=== PATIENT | male | born 1945 | race Caucasian/White ===

== ENCOUNTER 2017-09-11 19:30 | Outpatient (CLI) | payer MEDICARE | END 2017-09-11 19:31 | disposition home or self-care (01) | LOC: SLEEPLAB 19:30 | PROVIDERS: ATTEND Family Medicine | DX: G47.10 Hypersomnia, unspecified (principal); R53.83 Other fatigue; E66.9 Obesity, unspecified; I10 Essential (primary) hypertension; R06.83 Snoring | CPT/HCPCS: 95811 ==

== ENCOUNTER 2018-03-18 18:54 | Observation (INO) | payer MEDICARE ==
[~2018-03-18 18:54] MED LIST: ISOVUE-370 76%-LOCM 1 ML ONE
[2018-03-18] MEDS ORDERED: Ketorolac Tromethamine 30 MG/ML VIAL ONE (19:10)
[2018-03-18] MEDS ORDERED: Acetaminophen 500 MG TAB ONE (19:10)
[2018-03-18 19:40] LABS: #Basophils 0.1 thou/uL (0.0-0.2); #Eosinphils 0.3 thou/uL (0.0-0.7); #Lymphocytes 1.4 thou/uL (1.20-3.40); #Monocytes 0.6 thou/uL (0.11-0.59); #Neutrophils 3.8 thou/uL (1.40-6.50); %Basophils 0.8 % (0.0-1.0); %Eosinophils 5.2 % (0.0-10.0); %Lymphocytes 23.4 % (21.0-51.0); %Monocytes 9.4 % (0.0-10.0); %Neutrophils 61.2 % (42.0-75.0); Hemoglobin 14.8 g/dL (14.0-18.0); Mean Corpuscular HGB CONC 35.3 g/dL (32.0-36.0); Mean Corpuscular Hemoglobin 34.7 pg (27.0-31.0); Mean Corpuscular Volume 98.3 fL (78.0-98.0); Mean Platelet Volume 7.7 fL (7.4-10.4); Platelet Count 161 thou/uL (130-400); RBC Distribution Width 11.8 % (11.5-14.5); Red Blood Cell (RBC) Count 4.28 mill/uL (4.70-6.10); White Blood Cell (WBC) Count 6.1 thou/uL (4.8-10.8)
--- NOTE | 2018-03-18 19:56 | RAD ---
FRONTAL RADIOGRAPH CHEST 03/18/18 COMPARISON: 05/04/14. HISTORY: Hypertension, weakness, and palpitations with chest pain. FINDINGS: Lungs are clear. Heart and mediastinal contours are unremarkable. IMPRESSION: No acute findings. POS: [facility]
[2018-03-18 20:02] LABS: ALT (SGPT) 26 U/L (8-55); AST (SGOT) 24 U/L (5-34); Albumin 4.8 g/dL (3.4-4.8); Alkaline Phosphatase 63 U/L (40-150); Anion Gap 16 mmol/L (10-20); BUN (Urea Nitrogen) 15 mg/dL (8.4-25.7); Bilirubin, Total 0.7 mg/dL (0.2-1.2); CK (CPK) 140 U/L (30-200); Calc. Creatinine Clearance 0 mL/min (70-130); Calcium 9.5 mg/dL (7.8-10.44); Carbon Dioxide 22 mmol/L (23-31); Chloride 107 mmol/L (98-107); Estimated GFR-MDRD 71; Globulin 2.3 g/dL (2.4-3.5); Glucose 88 mg/dL (83-110); Lipase 44 U/L (8-78); Protein, Total 7.1 g/dL (5.8-8.1); Sodium 141 mmol/L (136-145)
[2018-03-18 20:06] LABS: CKMB 1.9 ng/mL (0-6.6); Troponin I Less than 0.010 ng/mL (< 0.028)
--- NOTE | 2018-03-18 22:29 | CT ---
CT ABDOMEN AND PELVIS 03/18/18 COMPARISON: None. HISTORY: Malaise and pain. TECHNIQUE: Serial axial CT imaging at 5 mm intervals from lung bases through pubic symphysis with IV contrast. C oronal reformatted imaging obtained. FINDINGS: The visualized lung bases appear unremarkable. There is trace pericardial fluid. There is calcificati on in the region of the coronary arteries and the mitral valves. There are subcentimeter hypodensitie s in the superior aspect of the left lobe of the liver, too small to characterize. Similar small hypo densities are noted within the right lobe of the liver. Gallbladder, spleen, pancreas, adrenal glands , and kidneys are unremarkable. Prostate gland is prominent. There is diverticulosis of the descending colon and sigmoid colon with no evidence for diverticulitis . The appendix appears unremarkable. No evidence for bowel obstruction. There is scattered atheroscle rotic calcification of the abdominal aorta and its branches. No lymphadenopathy is noted within the a bdomen or pelvis. There are degenerative changes involving bilateral hips. There is multilevel degenerative change note d within the lumbar spine with disc space narrowing, osteophyte formation and subchondral sclerosis. IMPRESSION: No evidence for small bowel obstruction, free intraperitoneal air or appendicitis. POS: [facility]
[2018-03-19] MEDS ORDERED: Morphine 10 MG/ML VIAL ONE (00:13)
[2018-03-19] MEDS ORDERED: Ondansetron HCl/PF 4 MG/2 ML Vial ONE (00:13)
[2018-03-19 00:49] LABS: CKMB 1.4 ng/mL (0-6.6); Troponin I Less than 0.010 ng/mL (< 0.028)
[2018-03-19] MEDS ORDERED: HYDROcodone/Acetaminophen 5/325 mg Tablet ONE (03:37)
[2018-03-19 04:20] LABS: Troponin I 0.013 ng/mL (< 0.028)
[2018-03-19 06:47] LABS: Troponin I Less than 0.010 ng/mL (< 0.028)
--- NOTE | 2018-03-19 08:34 | DIS ---
DISCHARGE DIAGNOSES: 1. Chest pain. 2. Abdominal wall strain. 3. Status post wasp sting x3. 4. Fatigue. 5. Hypertension. 6. Hyperlipidemia. 7. Status post cerebrovascular accident. DISCHARGE MEDICATIONS: Aspirin 81 mg daily, lisinopril 40 daily, metoprolol 50 b.i.d., amlodipine 10 at bedtime, CoQ 10 daily, Crestor 40 daily, probiotic daily, vitamin D3 1000 mg daily, multivitamin daily. BRIEF HISTORY: This is a 72-year-old white male with a history of hypertension, hyperlipidemia, was doing well until Thursday morning he was stung by 3 wasps. He was feeling bad at that time. Then yest erday he awoke and felt very lightheaded and weak. 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 He was crawling on the ground, trying to remove the blades off of his custodial services manager. He was unsuccessful and finally had to load it up on a trailer an d take it to [facility] in [place]. He complains of abdominal wall pain, especially when he rolls o shona in bed or when he makes any movements. He has been taking Naprosyn daily for the past several da ys. This morning he feels fine except for some mostly abdominal wall tenderness. HOSPITAL COURSE: This morning the patient is feeling well. His vitals have remained stable. His he art rate has remained within the normal limits. He does have a history of atrial flutter years ago. Cardiac enzymes x3 have been unremarkable. His CBC and comp labs have been normal. Chest x-ray neg ative. CT of abdomen and pelvis negative. PHYSICAL EXAMINATION: VITAL SIGNS: His vitals have been stable. He is afebrile. HEENT: Clear. HEART/LUNGS: Clear. ABDOMEN: Soft except for a moderate rectus abdominis wall tenderness especially to palpation and to rotation of the trunk. EXTREMITIES: With no edema. ASSESSMENT: As above, the patient will be discharged. He will follow up on Thursday with me. He has been told to come back to the emergency room for any reoccurrence of severe pain, chest pain or as n eeded.
[2018-03-19] MEDS ORDERED: Acetaminophen 325 MG TAB ONE (08:48)
== END 2018-03-19 08:56 | disposition home or self-care (01) ==
LOC: ERS 18:54 → ERHOLD 03-19 01:00
PROVIDERS: ADMIT Family Medicine; ATTEND Family Medicine
DX: R07.9 Chest pain, unspecified (principal); I10 Essential (primary) hypertension; E78.5 Hyperlipidemia, unspecified; R10.9 Unspecified abdominal pain; R53.83 Other fatigue; Z86.73 Personal history of transient ischemic attack (TIA), and cerebral infarction without residual deficits; Z79.82 Long term (current) use of aspirin; Z79.899 Other long term (current) drug therapy
CPT/HCPCS: 36415; 71045; 74177; 80053; 82553; 83690; 84484; 85025; 93005; 96374; 96375; J1885; J2270; J2405

== ENCOUNTER 2018-04-01 16:49 | Outpatient (CLI) | payer MEDICARE ==
[2018-04-01 17:52] LABS: PTT 26.3 SEC (22.9-36.1); Prothrombin Time 13.2 SEC (12.0-14.7)
[2018-04-01 18:07] LABS: Anion Gap 16 mmol/L (10-20); BUN (Urea Nitrogen) 18 mg/dL (8.4-25.7); Calc. Creatinine Clearance 0 mL/min (70-130); Calcium 9.5 mg/dL (7.8-10.44); Carbon Dioxide 23 mmol/L (23-31); Chloride 104 mmol/L (98-107); Estimated GFR-MDRD 67; Glucose 120 mg/dL (83-110); Potassium 3.9 mmol/L (3.5-5.1); Sodium 139 mmol/L (136-145)
== END 2018-04-01 16:50 | disposition home or self-care (01) ==
LOC: LABBT 16:49
PROVIDERS: ATTEND Internal Medicine Cardiovascular Disease
DX: Z01.818 Encounter for other preprocedural examination (principal); I48.92 Unspecified atrial flutter
CPT/HCPCS: 80048; 85610; 85730

== ENCOUNTER 2018-04-02 06:20 | Day surgery (SDC) | payer MEDICARE ==
[2018-04-01 16:58] VITALS: BMI 30.4
[2018-04-02] MEDS ORDERED: PROPOFOL 40 ML ONE (08:14)
[2018-04-02] MEDS ORDERED: Hydrocortisone 1% Cream 30 GM TUBE ONE (09:51)
--- NOTE | 2018-04-02 13:05 | EKG ---
Test Reason : PREOP Blood Pressure : / mmHG Vent. Rate : 111 BPM Atrial Rate : 111 BPM P-R Int : 146 ms QRS Dur : 084 ms QT Int : 320 ms P-R-T Axes : 000 018 -26 degrees QTc Int : 435 ms Sinus tachycardia Abnormal ECG When compared with ECG of 18-MAR-2018 23:45, (Unconfirmed) Vent. rate has increased BY 51 BPM T wave inversion now evident in Inferior leads Confirmed by NATALIE WILLIS, SMaxine (4) on 04/02/2018 1:04:45 PM Referred By: HELENA Confirmed By:DR. Tyron ESTRADA MD
--- NOTE | 2018-04-02 13:06 | EKG ---
Test Reason : POST CARDIOVERSION Blood Pressure : / mmHG Vent. Rate : 083 BPM Atrial Rate : 083 BPM P-R Int : 150 ms QRS Dur : 088 ms QT Int : 378 ms P-R-T Axes : 063 007 031 degrees QTc Int : 444 ms Normal sinus rhythm Normal ECG When compared with ECG of 02-APR-2018 06:59, (Unconfirmed) T wave inversion no longer evident in Inferior leads Confirmed by NATALIE WILLIS, SMaxine (4) on 04/02/2018 1:05:58 PM Referred By: HELENA Confirmed By:DR. Tyron ESTRADA MD
--- NOTE | 2018-04-02 16:07 | ECHO ---
TRANSESOPHAGEAL ECHOCARDIOGRAM: DATE OF PROCEDURE: 04/02/18 INDICATION: 73-year-old gentleman with atypical flutter. DESCRIPTION OF PROCEDURE: The patient was taken to the PACU. The patient was sedated by anesthesiology. A transesophageal probe was placed in the distal esophagus and stomach. Echocardiographic images were obtained. The transesophageal probe was removed. FINDINGS: 1. Normal left ventricular systolic function. 2. Mild left atrial enlargement. 3. Mild mitral regurgitation. 4. Mild tricuspid regurgitation. 5. Trivial aortic regurgitation. 6. No thrombus in left atrium or left atrial appendage. 7. Atherosclerotic debris in the descending aorta. IMPRESSION: No formed thrombus in left atrium or left atrial appendage.
--- NOTE | 2018-04-02 16:10 | OP ---
CARDIOLOGY PROCEDURE NOTE: Date: 04/02/18 PROCEDURE: Electrical cardioversion. REASON FOR PROCEDURE: 72-year-old gentleman with atypical atrial flutter. PROCEDURE IN DETAIL: The patient taken to the PACU. The patient is sedated by anesthesiology. The patient was shocked with 50 joules of synchronized electricity. The patient went into atrial fibrillation. The patient was sh ocked again with 200 joules of synchronized electricity. Patient converted to normal sinus rhythm. IMPRESSION: Successful electrical cardioversion.
--- NOTE | 2018-04-03 19:47 | CON ---
DATE OF CONSULTATION: 04/02/2018 ELECTROPHYSIOLOGY CONSULTATION REPORT REFERRING PHYSICIAN: Dr. Soren Harkins and Dr. Tim Ibarra. I am seeing Mr. Sigala at our [facility] PACU unit after his BALTAZAR-guided cardioversion today regarding his atrial flutter. His problems are: 1. History of recurrent atrial arrhythmias. 1A. History of typical counterclockwise CTI dependent atrial flutter and status post CTI ablation on 03/01/2013, by Dr. Gustafson. 1B. Recurrent atrial flutter, possibly typical morphology with rapid rates prompting current cardiov ersion. 2. History of non-occlusive coronary arteries with a left heart catheterization in 02/2013 showed a 60% mid LAD, 30% proximal RCA, 20% distal RCA occlusion. 2A. LVEF 55% on echo on 01/19/2018. 3. History of tendency for bradycardia. 4. Risk factors including hyperlipidemia and obesity. 5. Prior history of stroke. ALLERGIES: None. MEDICATIONS: At home including vitamin B12, vitamin D3, , Eliquis 5 mg twice a day, aspirin 81 daily, Coenzyme Q10, amlodipine, lisinopril, metoprolol tartrate. SUBJECTIVE: Mr. Sigala is here with recurrent palpitation. He was noted to have atypical atrial flu tter on monitor in an ER visit on 03/26/[address] Harkins and he underwent BALTAZAR-gu ided cardioversion today. He has done well, currently maintaining sinus rhythm. Prior to this, he h ad some palpitations, not feeling good, dizziness. The event might have provoked by a bee sting or a wasp sting. REVIEW OF SYSTEMS: Rest of Ten-point system otherwise unremarkable. PAST MEDICAL HISTORY: As above. SOCIAL HISTORY: Patient denies smoking, ETOH or drug abuse. FAMILY HISTORY: Noncontributory. OBJECTIVE DATA: VITAL SIGNS: Blood pressure is 140/100, heart rate 120, prior to the cardioversion and about 80 post -cardioversion. The respiration is 12. Patient is afebrile. GENERAL: He is an alert, oriented man in no apparent distress. NECK: Supple. Jugular veins not distended. CHEST: Coarse without crackles. CARDIOVASCULAR: Heart sounds are regular to rate and rhythm. No murmur or gallop. ABDOMEN: Benign. Bowel sounds positive. EXTREMITIES: Lower extremities without edema, clubbing or cyanosis. Pulses adequate. NEUROLOGIC: Patient nonfocal. MUSCULOSKELETAL: Without joint swelling or deformities. SKIN: Without rash. DATABASE: EKGs reviewed revealing initially atrial flutter, possibly typical isthmus-dependent in mo rphology. Subsequently, rhythm reveals sinus rhythm after cardioversion. QTC is 444 milliseconds, Q RS is narrow at 88 milliseconds. LABORATORY DATA: White count 6.1, hemoglobin 14.8, platelet count is 161. Sodium 139, potassium 3.9 , BUN is 118, creatinine 1.08. INR is 1.0. ASSESSMENT AND PLAN: Mr. Sigala is a 72-year-old man with prior history of atrial arrhythmias. He h ad prior cavotricuspid dependent flutter, which was ablated in February 2013 and subsequently had recurre nce of atrial arrhythmias and a consideration was given for ablation to be done. It sounds like he h as never carried through with these plans. Now he is here with recurrence of atrial flutter as an ou tpatient for cardioversion. I would ask Dr. Harkins for further plans to be made. I discussed the treatment options. I explained to him the atrial flutter mechanism which possibly could be eliminate d by simple redo cavotricuspid isthmus ablation. On the other hand, it is possible that he had , possible left atrial circuits which might require a left atrial approach as well. There is a diffe rence between these two procedures. Risks, benefits detailed. The patient for now would like to con tinue monitoring and hold off from an ablation procedure. Should there be further episodes like this occurring, he should be highly considered for that. I also discussed option of antiarrhythmic agent s as well. The patient FELICITA risk score is high, CHADS VASc of 5, history of coronary disease, age, hypertension and also history of stroke and will be 4 by the time he turns 73, he should be anticoagulated possibl y permanently and history of recurrent atrial arrhythmias. I am happy to see him back as an outpatient.
== END 2018-04-02 12:30 | disposition home or self-care (01) ==
LOC: CCL 06:20
PROVIDERS: ATTEND Internal Medicine Cardiovascular Disease
DX: I48.4 Atypical atrial flutter (principal); I08.3 Combined rheumatic disorders of mitral, aortic and tricuspid valves; I25.10 Atherosclerotic heart disease of native coronary artery without angina pectoris; E78.5 Hyperlipidemia, unspecified; E66.9 Obesity, unspecified; Z86.73 Personal history of transient ischemic attack (TIA), and cerebral infarction without residual deficits; Z79.82 Long term (current) use of aspirin; Z79.52 Long term (current) use of systemic steroids; Z79.899 Other long term (current) drug therapy; Z68.29 Body mass index [BMI] 29.0-29.9, adult
CPT/HCPCS: 92960; 93005; 93010; 93312; J2704

== ENCOUNTER 2018-09-14 05:49 | Day surgery (SDC) | payer MEDICARE ==
[2018-09-13 14:00] VITALS: BMI 32.2
[2018-09-14 06:31] LABS: INR-International Normal Ratio 1.2; PTT 31.1 SEC (22.9-36.1); Prothrombin Time 15.6 SEC (12.0-14.7)
[2018-09-14 06:46] LABS: Anion Gap 13 mmol/L (10-20); BUN (Urea Nitrogen) 14 mg/dL (8.4-25.7); Calc. Creatinine Clearance 75 mL/min (70-130); Calcium 9.4 mg/dL (7.8-10.44); Carbon Dioxide 28 mmol/L (23-31); Chloride 106 mmol/L (98-107); Estimated GFR-MDRD 61; Glucose 98 mg/dL (83-110); Potassium 3.8 mmol/L (3.5-5.1); Sodium 143 mmol/L (136-145)
--- NOTE | 2018-09-14 16:11 | EKG ---
Test Reason : PREOP CARDIOVERSION Blood Pressure : / mmHG Vent. Rate : 051 BPM Atrial Rate : 051 BPM P-R Int : 148 ms QRS Dur : 090 ms QT Int : 456 ms P-R-T Axes : 045 017 013 degrees QTc Int : 420 ms Sinus bradycardia Low voltage QRS Poor anterior R wave progression When compared with ECG of 02-APR-2018 10:08, Vent. rate has decreased BY [address] Janell SIERRA (3) on 09/14/2018 4:11:23 PM Referred By: HELENA Confirmed By:DR. Janell SIERRA
== END 2018-09-14 08:58 | disposition home or self-care (01) ==
LOC: CCL 05:49
PROVIDERS: ATTEND Internal Medicine Cardiovascular Disease
DX: I48.4 Atypical atrial flutter (principal); I10 Essential (primary) hypertension; I25.10 Atherosclerotic heart disease of native coronary artery without angina pectoris; E78.2 Mixed hyperlipidemia; E66.9 Obesity, unspecified; Z68.32 Body mass index [BMI] 32.0-32.9, adult; Z86.73 Personal history of transient ischemic attack (TIA), and cerebral infarction without residual deficits; Z53.8 Procedure and treatment not carried out for other reasons; Z79.01 Long term (current) use of anticoagulants; Z79.82 Long term (current) use of aspirin; Z79.899 Other long term (current) drug therapy
CPT/HCPCS: 36415; 80048; 85610; 85730; 93005; 93010

== ENCOUNTER 2021-10-14 09:57 | Observation (INO) | payer MEDICARE ==
[2021-10-14 11:20] LABS: #Eosinphils 0.3 thou/uL (0.0-0.7); #Lymphocytes 0.9 thou/uL (1.20-3.40); #Monocytes 0.5 thou/uL (0.11-0.59); #Neutrophils 3.3 thou/uL (1.40-6.50); %Basophils 0.6 % (0.0-1.0); %Eosinophils 5.1 % (0.0-10.0); %Lymphocytes 18.6 % (21.0-51.0); %Monocytes 9.3 % (0.0-10.0); %Neutrophils 66.4 % (42.0-75.0); Hemoglobin 13.9 g/dL (14.0-18.0); Mean Corpuscular HGB CONC 34.8 g/dL (32.0-36.0); Mean Platelet Volume 7.5 fL (7.4-10.4); Platelet Count 183 thou/uL (130-400); RBC Distribution Width 12.4 % (11.5-14.5); Red Blood Cell (RBC) Count 3.85 mill/uL (4.70-6.10)
[2021-10-14 11:47] LABS: ALT (SGPT) 24 U/L (8-55); AST (SGOT) 19 U/L (5-34); Albumin 4.6 g/dL (3.4-4.8); Alkaline Phosphatase 75 U/L (40-110); Anion Gap 16 mmol/L (10-20); BUN (Urea Nitrogen) 16 mg/dL (8.4-25.7); Bilirubin, Total 0.7 mg/dL (0.2-1.2); Calc. Creatinine Clearance 0 mL/min (70-130); Calcium 9.1 mg/dL (7.8-10.44); Carbon Dioxide 23 mmol/L (23-31); Chloride 105 mmol/L (98-107); Globulin 2.3 g/dL (2.4-3.5); Glucose 147 mg/dL (83-110); Potassium 4.2 mmol/L (3.5-5.1); Protein, Total 6.9 g/dL (5.8-8.1); Sodium 140 mmol/L (136-145)
[2021-10-14] MEDS ORDERED: Aspirin Chewable 81 MG TAB ONE (12:10)
[2021-10-14] MEDS ORDERED: Nitroglycerin 0.4 MG TAB (25 Tab Bottle) SL PRN (13:11)
[2021-10-14] MEDS ORDERED: Ondansetron ODT 4 MG TAB PO PRN (13:17)
[2021-10-14] MEDS ORDERED: Acetaminophen 325 MG TAB PO PRN (13:17)
[2021-10-14] MEDS ORDERED: Metoprolol Tartrate 50 MG TAB ONE (13:24)
[2021-10-14] MEDS ORDERED: Lisinopril 10 MG TAB ONE ×2 (13:27→13:28)
[2021-10-14] MEDS ORDERED: Apixaban 5 MG TAB PO SCH (14:00)
[2021-10-14 14:58] LABS: Troponin I Less than 0.010 ng/mL (< 0.028)
[2021-10-14 15:26] LABS: SARS-CoV-2 NAA Rapid Test DETECTED (NotDetected)
[2021-10-14 16:46] VITALS: BMI 36.8
[2021-10-14 17:52] LABS: Troponin I Less than 0.010 ng/mL (< 0.028)
[2021-10-14] MEDS ORDERED: diphenhydrAMINE 25 MG CAP PO PRN (19:54)
[2021-10-14] MEDS ORDERED: Acetaminophen 500 MG TAB PO PRN (19:55)
[2021-10-14] MEDS: Lisinopril 20 MG TAB PO SCH (19:58)
[2021-10-14] MEDS: Metoprolol Tartrate 50 MG TAB PO SCH (19:58)
[2021-10-14] MEDS: Apixaban 5 MG TAB PO SCH (19:59)
[2021-10-14] MEDS ORDERED: Amlodipine 10 MG TAB PO SCH (21:00)
[2021-10-14] MEDS ORDERED: Atorvastatin Calcium 10 MG TAB PO SCH (21:00)
[2021-10-15 04:50] LABS: #Eosinphils 0.2 thou/uL (0.0-0.7); #Monocytes 0.4 thou/uL (0.11-0.59); #Neutrophils 2.5 thou/uL (1.40-6.50); %Basophils 0.1 % (0.0-1.0); %Eosinophils 6.1 % (0.0-10.0); %Lymphocytes 24.6 % (21.0-51.0); %Monocytes 8.8 % (0.0-10.0); %Neutrophils 60.5 % (42.0-75.0); Hemoglobin 12.3 g/dL (14.0-18.0); Mean Corpuscular HGB CONC 34.8 g/dL (32.0-36.0); Mean Corpuscular Hemoglobin 35.8 pg (27.0-31.0); Mean Platelet Volume 7.4 fL (7.4-10.4); Platelet Count 164 thou/uL (130-400); RBC Distribution Width 12.5 % (11.5-14.5); Red Blood Cell (RBC) Count 3.45 mill/uL (4.70-6.10); White Blood Cell (WBC) Count 4.1 thou/uL (4.8-10.8)
[2021-10-15 05:00] LABS: Hemoglobin A1c 6.4 % (4.0-6.0)
[2021-10-15 05:17] LABS: Anion Gap 13 mmol/L (10-20); BUN (Urea Nitrogen) 17 mg/dL (8.4-25.7); Calc. Creatinine Clearance 75 mL/min (70-130); Calcium 8.8 mg/dL (7.8-10.44); Carbon Dioxide 24 mmol/L (23-31); Cardiac Risk 4.7 (Less than 4.5); Chloride 106 mmol/L (98-107); Cholesterol 112 mg/dl (< 200 Desired); Glucose 197 mg/dL (83-110); HDL Cholesterol 24 mg/dL (>60 Neg Risk); LDL Cholesterol, Calculated 62 mg/dL; Potassium 3.6 mmol/L (3.5-5.1); Sodium 139 mmol/L (136-145); Triglycerides 128 mg/dL (Less than 150)
[2021-10-15 08:33] VITALS: BP 133/93; TEMP 97.8
[2021-10-15] MEDS: Apixaban 5 MG TAB PO SCH (08:37)
[2021-10-15] MEDS: Metoprolol Tartrate 50 MG TAB PO SCH (08:37)
[2021-10-15] MEDS: Lisinopril 20 MG TAB PO SCH (08:37)
[2021-10-15] MEDS ORDERED: Zinc Sulfate 220 MG CAP PO SCH (09:00)
[2021-10-15] MEDS ORDERED: Cholecalciferol 1,000 UNITS (25 MCG) TAB PO SCH (09:00)
[2021-10-15] MEDS ORDERED: Ascorbic Acid 500 mg Chewable Tablet PO SCH (09:00)
[2021-10-15] MEDS ORDERED: Aspirin 81 mg Enteric Coated Tablet PO SCH (09:00)
== END 2021-10-15 14:46 | disposition home or self-care (01) ==
LOC: ERS 09:57 → ERHOLD 12:55 → 2SW 16:45
PROVIDERS: ADMIT Internal Medicine; ATTEND Family Medicine
DX: I48.4 Atypical atrial flutter (principal); I25.10 Atherosclerotic heart disease of native coronary artery without angina pectoris; I16.0 Hypertensive urgency; I11.9 Hypertensive heart disease without heart failure; E78.5 Hyperlipidemia, unspecified; U07.1 COVID-19; I48.91 Unspecified atrial fibrillation; E66.9 Obesity, unspecified; Z68.36 Body mass index [BMI] 36.0-36.9, adult; Z86.73 Personal history of transient ischemic attack (TIA), and cerebral infarction without residual deficits; Z79.01 Long term (current) use of anticoagulants; Z79.899 Other long term (current) drug therapy; Z79.82 Long term (current) use of aspirin
CPT/HCPCS: 71045; 80048; 80061; 83036; 83735; 83880; 84484 ×2; 85025; 93005; U0002; 36415; 80053; 84443; G0378

== ENCOUNTER 2024-07-21 09:44 | Emergency (ER) | payer OTHER ==
[2024-07-21] MEDS ORDERED: Oxymetazoline HCl 0.05% (30 ML BOT) ONE (10:29)
[2024-07-21 11:05] LABS: #Basophils Less than 0.03 10x3/uL (0.0-0.2); %Basophils 0.5 % (0.0-1.0); %Eosinophils 4.5 % (0.0-10.0); %Lymphocytes 11.9 % (21.0-51.0); %Monocytes 11.6 % (0.0-10.0); Hemoglobin 10.3 g/dL (14.0-18.0); Mean Corpuscular HGB CONC 34.3 g/dL (32.0-36.0); Mean Corpuscular Volume 104.9 fL (78.0-98.0); Platelet Count 207 10x3/uL (130-400); RBC Distribution Width 12.8 % (11.5-14.5); Red Blood Cell (RBC) Count 2.86 mill/uL (4.70-6.10)
[2024-07-21 11:19] LABS: INR-International Normal Ratio 1.1; Prothrombin Time 14.2 sec (12.0-14.7)
[2024-07-21 11:20] LABS: PTT 30.9 sec (22.9-36.1)
[2024-07-21 11:47] LABS: ALT (SGPT) 32 U/L (8-55); AST (SGOT) 22 U/L (5-34); Albumin 3.9 g/dL (3.4-4.8); Alkaline Phosphatase 81 U/L (40-110); Anion Gap 13 mmol/L (10-20); BUN (Urea Nitrogen) 15 mg/dL (8.4-25.7); Bilirubin, Total 0.6 mg/dL (0.2-1.2); Calc. Creatinine Clearance 0 mL/min (70-130); Calcium 8.9 mg/dL (7.8-10.44); Carbon Dioxide 25 mmol/L (23-31); Chloride 104 mmol/L (98-107); Estimated GFR 50; Glucose 139 mg/dL (83-110); Protein, Total 6.9 g/dL (5.8-8.1); Sodium 138 mmol/L (136-145)
== END 2024-07-21 12:17 | disposition home or self-care (01) ==
LOC: ERS 09:44
DX: J33.9 Nasal polyp, unspecified (principal); R04.0 Epistaxis; I10 Essential (primary) hypertension
CPT/HCPCS: 36415; 80053; 85025; 85610; 85730; 99283

== ENCOUNTER 2024-08-03 00:18 | Observation (INO) | payer OTHER ==
[2024-08-03] MEDS ORDERED: hydrALAZINE 25 MG TAB ONE (21:12)
[2024-08-03] MEDS ORDERED: Apixaban 5 MG TAB ONE (21:12)
[2024-08-03] MEDS ORDERED: Famotidine 20 MG TAB ONE (21:12)
[2024-08-03] MEDS ORDERED: Amlodipine 5 MG TAB ONE (21:12)
[2024-08-03] MEDS ORDERED: CO Q-10 CAPSULE 100 MG ONE (21:13)
[2024-08-04] MEDS ORDERED: Famotidine 20 MG TAB ONE (09:56)
[2024-08-04] MEDS ORDERED: hydrALAZINE 25 MG TAB ONE ×2 (09:56→09:59)
[2024-08-04] MEDS ORDERED: Isosorbide Mononitrate 30 MG ER.TAB ONE (09:57)
[2024-08-04] MEDS ORDERED: Tamsulosin HCl 0.4 MG CAP ONE (09:57)
[2024-08-04] MEDS ORDERED: Atorvastatin Calcium 20 MG TAB ONE (09:57)
[2024-08-04] MEDS ORDERED: Aspirin Chewable 81 MG TAB ONE (09:57)
[2024-08-04] MEDS ORDERED: Apixaban 5 MG TAB ONE (09:57)
[2024-08-04] MEDS ORDERED: Ranolazine ER 500 MG TAB ONE (09:57)
[2024-08-04] MEDS ORDERED: Fish Oil 1,000 MG CAP ONE (09:58)
[2024-08-04] MEDS ORDERED: CO Q-10 CAPSULE 100 MG ONE (09:58)
[2024-08-04] MEDS ORDERED: Levothyroxine Sodium 25 MCG TAB ONE (10:00)
[2024-08-08 10:32] LABS: Troponin I Less than 0.010 ng/mL (< 0.028)
== END 2024-08-04 12:40 | disposition home or self-care (01) ==
LOC: ERS 00:18 → OBS 08-04 03:18
PROVIDERS: ADMIT Student in an Organized Health Care Education/Training Program; ATTEND Student in an Organized Health Care Education/Training Program
DX: I16.1 Hypertensive emergency (principal); I48.91 Unspecified atrial fibrillation; E78.5 Hyperlipidemia, unspecified; I12.9 Hypertensive chronic kidney disease with stage 1 through stage 4 chronic kidney disease, or unspecified chronic kidney disease; N18.30 Chronic kidney disease, stage 3 unspecified; D63.1 Anemia in chronic kidney disease; I25.10 Atherosclerotic heart disease of native coronary artery without angina pectoris; Z79.01 Long term (current) use of anticoagulants; Z98.890 Other specified postprocedural states; Z98.49 Cataract extraction status, unspecified eye; Z79.899 Other long term (current) drug therapy
CPT/HCPCS: 82607; 84484

== ENCOUNTER 2025-05-19 08:15 | Day surgery (SDC) | payer OTHER ==
[2025-05-19 08:49] LABS: #Basophils 0.03 10x3/uL (0.0-0.2); #Eosinophils 0.17 10x3/uL (0.0-0.7); #Monocytes 0.55 10x3/uL (0.11-0.59); #Neutrophils 3.14 10x3/uL (1.40-6.50); %Basophils 0.7 % (0.0-1.0); %Eosinophils 3.7 % (0.0-10.0); %Lymphocytes 14.0 % (21.0-51.0); %Monocytes 12.1 % (0.0-10.0); %Neutrophils 68.8 % (42.0-75.0); Hematocrit 30.4 % (42.0-52.0); Hemoglobin 10.3 g/dL (14.0-18.0); Mean Corpuscular Hemoglobin 37.3 pg (27.0-31.0); Mean Corpuscular Volume 110.1 fL (78.0-98.0); Platelet Count 172 10x3/uL (130-400); Red Blood Cell (RBC) Count 2.76 mill/uL (4.70-6.10); White Blood Cell (WBC) Count 4.56 10x3/uL (4.8-10.8)
[2025-05-19 08:54] LABS: INR-International Normal Ratio 1.1; Prothrombin Time 14.7 sec (12.0-14.7)
[2025-05-19 08:55] LABS: PTT 29.5 sec (22.9-36.1)
[2025-05-19] MEDS ORDERED: Lidocaine 1% w/Epinephrine 1:100K 20 ML VIAL ONE (09:50)
[2025-05-19] MEDS ORDERED: Sodium Bicarbonate 2.5 MEQ/5 ML SDV ONE (09:50)
[2025-05-19 09:58] LABS: Macrocytosis SLIGHT = 6-15 cells HPF (0-5); Ovalocytes SLIGHT = 2-5 cells HPF (0-1); Platelet Adequacy Comment Platelets Normal; Polychromasia SLIGHT = 2-3 cells HPF (0-2)
[2025-05-19] MEDS ORDERED: Lidocaine 1% PF 5 ML VIAL ONE (10:04)
== END 2025-05-19 11:30 | disposition home or self-care (01) ==
LOC: CT 08:15
PROVIDERS: ATTEND Internal Medicine
PROC: 07DR3ZX Extraction of Iliac Bone Marrow, Percutaneous Approach, Diagnostic (ICD-10-PCS; principal; 2025-05-19)
DX: D72.819 Decreased white blood cell count, unspecified (principal); D50.9 Iron deficiency anemia, unspecified; D53.9 Nutritional anemia, unspecified; I10 Essential (primary) hypertension; I48.91 Unspecified atrial fibrillation; Z86.73 Personal history of transient ischemic attack (TIA), and cerebral infarction without residual deficits; Z98.890 Other specified postprocedural states; Z79.82 Long term (current) use of aspirin; Z79.01 Long term (current) use of anticoagulants; Z79.899 Other long term (current) drug therapy
CPT/HCPCS: 20225; 36000; 77002; 77012; 85025; 85097; 85610; 85730; C1830; 36415; 88184; 88185; 88189; 88237; 88264; 88280; 88305; 88311; 88313; 88341; 88342; J2250; J3010

== ENCOUNTER 2025-08-28 13:16 | Observation (INO) | payer OTHER ==
[2025-08-28 18:12] VITALS: BMI 35.5
[2025-08-28] MEDS ORDERED: Nitroglycerin 0.4 MG TAB (25 Tab Bottle) SL PRN (19:37)
[2025-08-28] MEDS ORDERED: Acetaminophen 325 MG TAB PO PRN (19:37)
[2025-08-28] MEDS ORDERED: Ondansetron PF 4 MG/2 ML Vial IVP PRN (19:37)
[2025-08-28] MEDS ORDERED: Dextrose 50% Abboject 50 ML SYRINGE SLOW IVP PRN (20:21)
[2025-08-28] MEDS ORDERED: Glucagon 1 MG/ML KIT IM PRN (20:21)
[2025-08-28] MEDS: Metoprolol Succinate XL 50 MG ER.TAB PO SCH (21:50)
[2025-08-29 04:57] LABS: #Basophils 0.03 10x3/uL (0.0-0.2); #Eosinophils 0.18 10x3/uL (0.0-0.7); #Monocytes 0.48 10x3/uL (0.11-0.59); #Neutrophils 2.14 10x3/uL (1.40-6.50); %Basophils 0.8 % (0.0-1.0); %Eosinophils 5.0 % (0.0-10.0); %Lymphocytes 21.5 % (21.0-51.0); %Monocytes 13.3 % (0.0-10.0); %Neutrophils 59.1 % (42.0-75.0); Hematocrit 28.6 % (42.0-52.0); Hemoglobin 9.8 g/dL (14.0-18.0); Mean Corpuscular Hemoglobin 37.1 pg (27.0-31.0); Mean Corpuscular Volume 108.3 fL (78.0-98.0); Platelet Count 178 10x3/uL (130-400); Red Blood Cell (RBC) Count 2.64 mill/uL (4.70-6.10); White Blood Cell (WBC) Count 3.62 10x3/uL (4.8-10.8)
[2025-08-29 05:15] LABS: Anion Gap 13 mmol/L (10-20); BUN (Urea Nitrogen) 15 mg/dL (8.4-25.7); Calc. Creatinine Clearance 68 mL/min (70-130); Calcium 9.1 mg/dL (7.8-10.44); Carbon Dioxide 26 mmol/L (23-31); Chloride 103 mmol/L (98-107); Glucose 121 mg/dL (83-110); Magnesium 1.7 mg/dL (1.6-2.6); Potassium 3.2 mmol/L (3.5-5.1); Sodium 139 mmol/L (136-145)
[2025-08-29] MEDS: Pilocarpine 1% Ophth Drops 15 ML BOT EA EYE SCH (08:23)
[2025-08-29] MEDS: DorzolamidE/Timolol 2%/0.5% Ophth Soln 10 ml Bottle EA EYE SCH (08:23)
[2025-08-29] MEDS: CO Q-10 CAPSULE 100 MG PO SCH (08:23)
[2025-08-29] MEDS: Losartan 25 MG TAB PO SCH (08:24)
[2025-08-29] MEDS: Cholecalciferol 1,000 UNITS (25 MCG) TAB PO SCH (08:24)
[2025-08-29] MEDS: Isosorbide Mononitrate 30 MG ER.TAB.S PO SCH (08:24)
[2025-08-29] MEDS: Apixaban 2.5 MG TAB PO SCH (08:24)
[2025-08-29] MEDS: Aspirin Chewable 81 MG TAB PO SCH (08:24)
[2025-08-29] MEDS ORDERED: Electrolyte Replacement Protocol 1 EACH FS SCH (09:00)
[2025-08-29] MEDS ORDERED: PHOS-NAK 1 PKT PACK PO PRN (09:15)
[2025-08-29] MEDS ORDERED: Potassium Chloride 20 MEQ in Premix 1 BAG IVPB PRN (09:15)
[2025-08-29] MEDS ORDERED: Magnesium Sulfate In Water 4 GM in Premix 1 BAG IVPB PRN (09:15)
[2025-08-29 12:51] VITALS: BP 139/89; TEMP 97.1
[2025-08-29] MEDS: Floranex 1 GM Packet PO SCH (13:14)
[2025-08-29] MEDS ORDERED: Metoprolol Succinate XL 50 MG ER.TAB PO SCH (21:00)
== END 2025-08-29 15:25 | disposition home or self-care (01) ==
LOC: OBS 13:16
PROVIDERS: ADMIT Internal Medicine; ATTEND Internal Medicine
DX: R07.2 Precordial pain (principal); I48.91 Unspecified atrial fibrillation; I12.9 Hypertensive chronic kidney disease with stage 1 through stage 4 chronic kidney disease, or unspecified chronic kidney disease; E11.22 Type 2 diabetes mellitus with diabetic chronic kidney disease; N18.31 Chronic kidney disease, stage 3a; I25.10 Atherosclerotic heart disease of native coronary artery without angina pectoris; D64.9 Anemia, unspecified; E03.9 Hypothyroidism, unspecified; Z79.4 Long term (current) use of insulin; Z79.82 Long term (current) use of aspirin; Z79.899 Other long term (current) drug therapy; Z86.73 Personal history of transient ischemic attack (TIA), and cerebral infarction without residual deficits
CPT/HCPCS: 36415; 36416; 78452; 80048; 83735; 84484; 85025; 93017; A9502; J2785